=== PATIENT | female | born 1990 ===

== ENCOUNTER 2018-08-20 14:14 | Emergency (ER) | payer OTHER ==
[2018-08-20] MEDS ORDERED: Tetan/Diph/Pertus SYR(Tdap)* 0.5 ML SYR(BOOSTRIX) use SYR IM ONE (15:04)
--- NOTE | 2018-08-20 15:11 | UC ---
Skin Complaint HPI - HPI Summary HPI Summary: 28-year-old woman comes to clinic today with a chief complaint of a fall in her bathtub last night. Follow-up is about 14 hours ago. She slipped and fell and has a complaint of left hip and low back pain. She has a laceration on the iliac crest on the left side. States the laceration did not bleed much and she cleaned it and put antibiotic ointment and a dressing on. She is not sure if she is up-to-date on her tetanus. She has been able to walk but it's very difficult to straighten upper back to the low back pain after the fall. No weakness or numbness. No abdominal pain. - History of Current Complaint Chief Complaint: UCLowerExtremity Time Seen by Provider: 08/20/18 14:50 Stated Complaint: HIP INJURY Pain Intensity: 4 - Allergy/Home Medications Allergies/Adverse Reactions: Allergies Allergy/AdvReac Type Severity Reaction Status Date / Time No Known Allergies Allergy Verified 08/20/18 14:39 Home Medications: Home Medications NK [No Home Medications Reported] 08/20/18 [History Confirmed 08/20/18] Review of Systems All Other Systems Reviewed And Are Negative: Yes Constitutional: Positive: Negative Skin: Positive: Other - left hip laceration Eyes: Positive: Negative ENT: Positive: Negative Respiratory: Positive: Negative Cardiovascular: Positive: Negative Gastrointestinal: Positive: Negative Motor: Positive: Negative Neurovascular: Positive: Negative Musculoskeletal: Positive: Other: - see hpi Neurological: Positive: Negative Psychological: Positive: Negative Is Patient Immunocompromised?: No PMH/Surg Hx/FS Hx/Imm Hx Previously Healthy: Yes - Surgical History Surgical History: None Surgery Procedure, Year, and Place: denies - Family History Known Family History: Positive: Non-Contributory - Social History Alcohol Use: Weekly Substance Use Type: None Smoking Status (MU): Never Smoked Tobacco Physical Exam Triage Information Reviewed: Yes Appearance: Well-Appearing, Well-Nourished, Pain Distress - mild Vital Signs: Initial Vital Signs Temp 98.6 F 08/20/18 14:33 Pulse 64 08/20/18 14:33 Resp 18 08/20/18 14:33 BP 104/68 08/20/18 14:33 Pulse Ox 98 08/20/18 14:33 Vital Signs Reviewed: Yes Eye Exam: Normal Eyes: Positive: Conjunctiva Clear Neck exam: Normal Neck: Positive: Supple Respiratory: Positive: No respiratory distress Musculoskeletal: Positive: Strength Intact, ROM Intact, Other: - Patient's tender to palpation in the lower lumbar area and also over the left iliac crest. Patient complains of pain gets worse in the low back when she tries to straighten up. There is no weakness or numbness strength is 5 out of 5. Neurological Exam: Normal Neurological: Positive: Alert, Muscle Tone Normal Psychological Exam: Normal Psychological: Positive: Normal Response To Family, Age Appropriate Behavior Skin: Positive: Other - 1.5 linear subcutaneous laceration over the left iliac crest. The edges are well approximated there is no active bleeding there is no discharge. Course/Dx - Course Course Of Treatment: Order Information: PELVIS 1-2 VWS. Accession Number: [id number]. CPT: 98701. Indication: LEFT hip and low back pain post fall. Comparison: No relevant prior exams available on the [facility] for comparison. Technique: AP pelvis. Report: No pelvic fracture or joint diastases evident. Normal alignment of the hips in the. AP projection. IUD noted. Unremarkable soft tissue contours. IMPRESSION: #. No radiographic evidence for traumatic injury at the pelvis. ___. <Electronically signed by Clement Greenfield MD in OV> 08/20/18 6103. Order Information: SP LUMBARSACRAL 4+ VWS. Accession Number: [id number]. CPT : 02015. HISTORY: pain s/p fall. COMPARISONS: None. VIEWS: 5 , Frontal, lateral, coned-down lateral sacral, and bilateral oblique views of. the lumbar spine. FINDINGS: ALIGNMENT: The alignment is normal. VERTEBRAL BODIES: The vertebral body heights are normal. The interpedicular distances are. normal. JOINTS: The facet joints are normal. INTERVERTEBRAL DISCS: The intervertebral disc heights are normal. SOFT TISSUE: Unremarkable. OTHER: An IUD is noted. The pelvis is unremarkable. The lung bases are clear. IMPRESSION: NO ACUTE OSSEOUS INJURY TO THE LUMBAR SPINE. PERSIST, RECOMMEND REPEAT IMAGING. . <Electronically signed by Marlon Mullins MD in OV> 08/20/18 4881. I discussed the x-ray reports with the patient I discussed the x-ray reports with the patient. The plan is to use ibuprofen as needed. The laceration was cleaned here she received her T tap. The plan will be to allow it to heal by secondary intention. Discussed laceration care. Follow-up primary care doctor as needed and return for reevaluation WORSE. - Diagnoses Provider Diagnosis: Laceration, Low back strain, Contusion of hip, left Discharge - Sign-Out/Discharge Documenting (check all that apply): Patient Departure All imaging exams completed and their final reports reviewed: No Studies - Discharge Plan Condition: Stable Disposition: HOME Patient Education Materials: Acute Low Back Pain (ED), Hip Contusion (ED), Laceration Without Closure (ED) Referrals: [facility] [Outside] Additional Instructions: FOLLOW UP WITH YOUR DOCTOR IF NOT COMPLETELY IMPROVED. YOU HAD THE TDAP IMMUNIZATION TODAY. GET RECHECKED FOR ANY WORSENING OF YOUR CONDITION OR QUESTIONS OR CONCERNS. - Billing Disposition and Condition Condition: STABLE Disposition: Home
--- NOTE | 2018-08-20 22:11 | UC ---
- Progress Note Progress Note: Patient Name: TROY CLINE Medical Record#: [id number] Ordering Physician: Jm Reaves MD Acct.#: [id number] : 1990 Age: 28 Sex: F Location: [facility] Exam Date: 08/20/18 1503 ADM Status: REG ER Order Information: SP LUMBARSACRAL 4+ VWS Accession Number: [id number] CPT: 14562 HISTORY: pain s/p fall COMPARISONS: None VIEWS: 5 , Frontal, lateral, coned-down lateral sacral, and bilateral oblique views of the lumbar spine. FINDINGS: ALIGNMENT: The alignment is normal. VERTEBRAL BODIES: The vertebral body heights are normal. The interpedicular distances are normal. JOINTS: The facet joints are normal. INTERVERTEBRAL DISCS: The intervertebral disc heights are normal. SOFT TISSUE: Unremarkable. OTHER: An IUD is noted. The pelvis is unremarkable. The lung bases are clear. IMPRESSION: NO ACUTE OSSEOUS INJURY TO THE LUMBAR SPINE. PERSIST, RECOMMEND REPEAT IMAGING. <Electronically signed by Marlon Mullins MD in OV> 08/20/181547 Dictated By: Marlon Mullins MD Dictated Date/Time: 08/20/181547 Transcribed Date/Time: 08/20/181545 Copy to: CC:No Primary Care Phys,NOPCP ; Jm Reaves MD Imaging - [facility] - [place] [facility] [address] [address] ph ([phone]) ph ([phone]) ph ([phone]) This report is only to be considered final once signed by the Provider(s) as displayed in the "<Electronically Signed by >" field (s). Absence of a signature indicates the report is in a draft status and still needs to be finalized. In the event this document was created by someone other than the signing Provider, the individual initiating the document will be listed in the "Entered by:" or "Dictated by:" jimenez. 1 of 1 Patient Name: TROY CLINE Medical Record#: [id number] Ordering Physician: mJ Reaves MD Acct.#: [id number] : 1990 Age: 28 Sex: F Location: [facility] Exam Date: 08/20/18 1503 ADM Status: REG ER Order Information: PELVIS 1-2 VWS Accession Number: [id number] CPT: 11256 Indication: LEFT hip and low back pain post fall. Comparison: No relevant prior exams available on the [facility] PACS for comparison. Technique: AP pelvis. Report: No pelvic fracture or joint diastases evident. Normal alignment of the hips in the AP projection. IUD noted. Unremarkable soft tissue contours. IMPRESSION: #. No radiographic evidence for traumatic injury at the pelvis. <Electronically signed by Clement Greenfield MD in OV> 08/20/18 1551 Dictated By: Clement Greenfield MD Dictated Date/Time: 08/20/18 1551 Transcribed Date/Time: 08/20/18 1549 Copy to: CC:No Primary Care Phys,NOPCP ; Jm Reaves MD Imaging - [facility] Imaging - [facility] [address] [place] [address] ph ([phone]) ph ([phone]) ph ([phone]) This report is only to be considered final once signed by the Provider(s) as displayed in the "<Electronically Signed by >" field (s). Absence of a signature indicates the report is in a draft status and still needs to be finalized. In the event this document was created by someone other than the signing Provider, the individual initiating the document will be listed in the "Entered by:" or "Dictated by:" jimenez. 1 of 1 Course/Dx - Diagnoses Provider Diagnoses: Laceration, Low back strain, Contusion of hip, left Discharge - Sign-Out/Discharge Documenting (check all that apply): Post-Discharge Follow Up All imaging exams completed and their final reports reviewed: Yes - Discharge Plan Condition: Stable Disposition: HOME Patient Education Materials: Acute Low Back Pain (ED), Hip Contusion (ED), Laceration Without Closure (ED) Referrals: [facility] [Outside] Additional Instructions: FOLLOW UP WITH YOUR DOCTOR IF NOT COMPLETELY IMPROVED. YOU HAD THE TDAP IMMUNIZATION TODAY. GET RECHECKED FOR ANY WORSENING OF YOUR CONDITION OR QUESTIONS OR CONCERNS. - Billing Disposition and Condition Condition: STABLE Disposition: Home
== END 2018-08-20 17:00 | disposition home or self-care (01) ==
LOC: UCEAST 14:14
DX: S31.114A Laceration without foreign body of abdominal wall, left lower quadrant without penetration into peritoneal cavity, initial encounter (principal); S39.012A Strain of muscle, fascia and tendon of lower back, initial encounter; S70.02XA Contusion of left hip, initial encounter; W18.2XXA Fall in (into) shower or empty bathtub, initial encounter; Y92.002 Bathroom of unspecified non-institutional (private) residence as the place of occurrence of the external cause
CPT/HCPCS: 72110; 72170; 90471; 90715; 99202; G0463